=== PATIENT | male | born 1930 | race Caucasian/White ===

== ENCOUNTER 2016-04-27 11:50 | Emergency (ER) | payer MEDICARE, OTHER ==
[2016-04-27] MEDS ORDERED: SODIUM CHLORIDE 0.9% 1,000 ML ONE (13:06)
[2016-04-27] MEDS ORDERED: ACETAMINOPHEN 500 MG TABLET ONE (13:07)
[2016-04-27 13:23] LABS: ABSOLUTE NEUTROPHIL COUNT 3.9 K/mm3 (1.8-7.7); BASO % 0.2 % (0.2-1.0); EOS # 0.1 (0.0-0.5); EOS % 0.4 % (0.9-2.9); HEMATOCRIT 37.1 % (32.0-52.0); HEMOGLOBIN 11.5 gm/l (14.0-18.0); IMM NEUT% 0.1 % (0-1); LYMPH # 10.2 (1.0-4.8); LYMPH % 68.8 % (15-45); MEAN CELL VOLUME 91.2 fl (80.0-94.0); MEAN CORPUSCULAR HEMOGLOBIN 28.3 pg (27.0-31.0); MEAN PLATELET VOLUME 10.1 fl (7.4-10.4); MONO # 0.6 (0.0-0.8); MONO % 4.2 % (4-12); NEUT % 26.3 % (43-75); PLATELET COUNT 180 K/mm3 (130-400); RED CELL DISTRIBUTION WIDTH 17.2 % (11.5-14.5)
[2016-04-27 13:33] LABS: ALB/GLOB RATIO 1.4 (>1.0); ALBUMIN 3.8 gm/dL (3.5-5.7); CALCIUM 9.1 mg/dL (8.6-10.3)
--- NOTE | 2016-04-27 13:42 | CT ---
Exam: CT head without contrast COMPARISON: 12/02/2012 INDICATION: Contusion, possible fall. TECHNIQUE: CT examination of the head was obtained without contrast. Finding: There is no acute intracranial hemorrhage. There is no abnormal intra or extra-axial fluid collection. There are new foci of encephalomalacia within the right occipitotemporal region and left frontal lobe compared with the 2013 exam, compatible with an interval ischemic events. Interval lacunar infarcts are also noted within the bilateral basal ganglia. A remote ischemic event is also noted within the right frontal lobe. Additional of deep white matter and periventricular white matter hypodensities are seen, compatible with chronic small vessel ischemic changes. There is no edema, mass effect or midline shift. There is mild to moderate global atrophy. Ventricles are not significantly enlarged. Old craniotomy defect is again noted within the right parietal bone. The visualized paranasal sinuses and mastoid air cells are well aerated. IMPRESSION: 1. No acute intracranial hemorrhage. 2. 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 Report was uploaded to the EMR at 1339 hours 04/27/2016. CT cervical spine to follow.
--- NOTE | 2016-04-27 13:46 | CT ---
Exam: CT cervical spine without contrast COMPARISON: None INDICATION: Contusion, possible fall. TECHNIQUE: CT examination of the cervical spine was obtained without contrast. FINDINGS: There is trace anterolisthesis of C4 on C5 and C5 on C6. Atlantoaxial and atlantooccipital relationships are maintained. There is no prevertebral soft tissue swelling. No acute fracture is identified. 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 There is multilevel degenerative disc disease most prominent at C5-6. There is significant hypertrophic facet arthropathy, most prominent on the right at C5-6 and on the left at C3-4 and C4-5. There is multilevel neural foraminal narrowing, severe on the left at C3-4 and C4-5. Limited evaluation of the lung apices demonstrates no pneumothorax. Paravertebral soft tissues are unremarkable. IMPRESSION: No acute osseous abnormality in the cervical spine. Degenerative changes as discussed above. Message given to Dr. Ayala for Dr. Heaton at 1343 hours 04/27/2016.
[2016-04-27 13:49] LABS: URINE BILIRUBIN NEGATIVE (NEGATIVE); URINE BLOOD NEGATIVE (NEGATIVE); URINE GLUCOSE (UA) NEGATIVE (NEGATIVE); URINE LEUKOCYTE ESTERASE NEGATIVE (NEGATIVE); URINE NITRITE NEGATIVE (NEGATIVE); URINE PROTEIN TRACE (NEGATIVE); URINE UROBILINOGEN NORMAL (0-1 mg/dl)
[2016-04-27 13:58] LABS: URINE APPEARANCE CLEAR; URINE COLOR YELLOW
[2016-04-27 15:34] LABS: TOTAL CELLS COUNTED 100
[2016-04-27 15:52] LABS: BAND 0 % (0-10); BASOPHIL 0 % (0-1); EOSINOPHIL 0 % (1-3); LYMPHOCYTE 51 % (15-45); MONOCYTE 2 % (4-12); NEUTROPHILS 12 % (43-75)
[2016-04-27 15:53] LABS: ATYPICAL LYMPHOCYTE 35 %
[2016-04-27 15:54] LABS: ORDER PATH REVIEW YES; PLATELET ESTIMATE NORMAL (NORMAL)
== END 2016-04-27 14:44 | disposition home or self-care (01) ==
LOC: ED 11:50
DX: R51 Headache (principal); E11.9 Type 2 diabetes mellitus without complications; I10 Essential (primary) hypertension; Z86.73 Personal history of transient ischemic attack (TIA), and cerebral infarction without residual deficits; Z79.899 Other long term (current) drug therapy; Z88.8 Allergy status to other drugs, medicaments and biological substances
CPT/HCPCS: 85025; 80053; 81003; 84484; 72125; 70450; 87804; 99284 ×2; 96360; A9270; J7030